=== PATIENT | male | born 2000 | race Caucasian/White ===

== ENCOUNTER 2024-03-21 15:40 | Emergency (ER) | payer BC ==
[2024-03-21] MEDS: Acetaminophen 500 MG Tab PO STA (16:28)
[2024-03-21] MEDS: Lidocaine 2% Viscous Solution 15 ML UD PO ONE (16:28)
[2024-03-21] MEDS: Benzocaine 20% Topical Spray UD MUCMEM ONE (16:28)
== END 2024-03-21 16:59 | disposition home or self-care (01) ==
LOC: MW.ED 15:40
DX: K04.7 Periapical abscess without sinus (principal); Z79.899 Other long term (current) drug therapy; Z75.8 Other problems related to medical facilities and other health care
CPT/HCPCS: 99283; A9270